=== PATIENT | female | born 1935 | race Caucasian/White ===

== ENCOUNTER 2018-12-16 13:27 | Observation (INO) | payer OTHER ==
[2018-12-16 14:04] LABS: Absolute Lymphocytes (CBC) 1.9 K/uL (0.7-4.9); Absolute Monocytes 0.8 K/uL (0.1-1.3); Absolute Neutrophil 3.3 K/uL (1.8-8.0); Basophils % 0.8 % (0-1.3); Eosinophils % 6.4 % (0-4.4); Hematocrit 38.8 % (36.0-45.0); Lymphocytes % 29.4 % (15.3-44.8); MPV 8.1 fL (7.6-11.3); Monocytes % 11.9 % (3.3-12.3); RBC Red Blood Cell Count 4.21 M/uL (3.86-4.86)
[2018-12-16] MEDS ORDERED: NA CHLORIDE 0.9% 500 ML ONE (14:04)
[2018-12-16 14:30] LABS: BUN Blood Urea Nitrogen 34 mg/dL (7-18); Bicarbonate 27 mmol/L (21-32); Glucose Level 103 mg/dL (74-106); Magnesium 2.5 mg/dL (1.8-2.4); Potassium 4.7 mmol/L (3.5-5.1); Sodium Level 142 mmol/L (136-145); Troponin (Emerg Dept Use Only) < 0.02 ng/mL (0.0-0.045)
--- NOTE | 2018-12-16 14:41 | RAD REPORT ---
EXAM DESCRIPTION: CT - Head Brain Wo Cont - 12/16/2018 2:02 pm CLINICAL HISTORY: Dizziness COMPARISON: None. TECHNIQUE: Computed axial tomography of the head was obtained. IV contrast was not requested. All CT scans are performed using dose optimization technique as appropriate and may include automated exposure control or mA/KV adjustment according to patient size. FINDINGS: An intracranial bleed is not seen . Prominence of ventricles probably related to white matter atrophy. Normal pressure hydrocephalus can have this appearance but is probably less likely and should be correlated clinically No extra-axial fluid collection is noted. Mild low-density areas within periventricular, deep and sub cortical white matter likely ischemic changes secondary small vessel disease. Cerebral atrophy is present Fluid within the sinuses/ mastoids is not seen. IMPRESSION: Prominence of ventricles probably related to white matter atrophy. Normal pressure hydro cephalus can have this appearance but is probably less likely and should be correlated clinically
--- NOTE | 2018-12-16 15:14 | EKG ---
Test Date: 2018-12-16 Test Time: 13:32:16 [employer] Tester: LIZ MEASUREMENT RESULTS: Intervals: Rate: 59 WY: 164 QRSD: 86 QT: 418 QTc: 413 [place]: P: 38 WY: 164 QRS: -28 T: 37 INTERPRETIVE STATEMENTS: Sinus bradycardia Minimal voltage criteria for LVH, may be normal variant Borderline ECG No previous ECG available for comparison Electronically Signed On 12-16-18 15:14:13 CDT by Farooq Slater
--- NOTE | 2018-12-16 16:13 | ER ---
Nurse's Notes [facility] Name: Niika Turner Age: 83 yrs Sex: Female : 1935 Arrival Date: 12/16/2018 Time: 13:35 Bed 24 Private MD: Diagnosis: Dehydration;Near Syncope Presentation: 12/16 13:36 Presenting complaint: EMS states: pt had seizure-like symptoms: nystagmus which lasted ca1 3-5 minutes, dizziness, blurred vision and headache. Happens 30 minutes ago. No postictal state after. No HX of seizures. BP of 172/66, HR 60 with sinus rhythm, O2 sat 97% RA and RR 12 unlabored. long term says pt can be confused and not confused at time which is normal. long term also states that pt reports burning upon urination for 1 month now. And weakness for 3 weeks which has been progressive in the past few days. Transition of care: patient was received from another setting of care (long-term care facility), [facility]. Onset of symptoms was December 16, 2018. Risk Assessment: Do you want to hurt yourself or someone else? Patient reports no desire to harm self or others. Initial Sepsis Screen: Does the patient meet any 2 criteria? No. Patient's initial sepsis screen is negative. Does the patient have a suspected source of infection? Yes: Dysuria/Frequency/Urgency/UTI. Care prior to arrival: IV initiated. 20 GA, in the right antecubital area, Glucose check: 102. 13:36 Method Of Arrival: EMS: [facility] ca1 13:36 Acuity: SHELBY 3 ca1 Triage Assessment: 13:36 General: Appears in no apparent distress. comfortable, Behavior is calm, cooperative, ca1 appropriate for age. Pain: Denies pain. Historical: - Allergies: 14:04 Botox; ca1 14:04 meloxicam; ca1 14:04 Influenza Virus Vaccines; ca1 14:04 PENICILLINS; ca1 14:04 Pneumococcal Vaccines; ca1 - Home Meds: 16:31 tramadol 50 mg Oral tab 1 tab three times a day [Active]; acetaminophen 325 mg Oral tab ca1 1 tab every 6 hours [Active]; alendronate sodium-cholecalciferol(vitamin D3) oral oral 1 tab once wkly [Active]; MagOx 400 mg oral tab daily [Active]; alprazolam 1 mg Oral tab twice a day [Active]; omeprazole 20 mg Oral cpDR [Active]; metoprolol tartrate 12.5mg Oral tab 1 tab once daily [Active]; melatonin 3 mg Oral tab [Active]; gabapentin 300 mg oral cap 2 caps nightly [Active]; - PMHx: 16:31 Age related osteoporosis; Anxiety; Hypertension; Generalized Muscle Weakness; Spinal ca1 Stenosis (Lumbar Region); Spondylolysis (Lumbar Region); Cognitive Communication Deficit; Erythromelalgia; GERD without Esophagitis; - Immunization history:: Flu vaccine is not up to date. - Social history:: Smoking status: Patient/guardian denies using tobacco. - Ebola Screening: : No symptoms or risks identified at this time. - Family history:: not pertinent. - Hospitalizations: : No recent hospitalization is reported. Screenin:37 Abuse screen: Denies threats or abuse. Denies injuries from another. Nutritional ca1 screening: No deficits noted. Tuberculosis screening: No symptoms or risk factors identified. Fall Risk IV access (20 points). Ambulatory Aid- Crutches/Cane/Walker (15 pts). Assessment: 13:37 General: Appears in no apparent distress. comfortable, Behavior is calm, cooperative, ca1 appropriate for age. Pain: Denies pain. Neuro: Level of Consciousness is awake, alert, obeys commands, Oriented to person, place, situation, Flumer are equal bilaterally Moves all extremities. Speech is normal, Facial symmetry appears normal, Pupils are PERRLA. Cardiovascular: Heart tones S1 S2 present Capillary refill < 3 seconds Patient's skin is warm and dry. Rhythm is sinus rhythm. Respiratory: Airway is patent Respiratory effort is even, unlabored, Respiratory pattern is regular, symmetrical, Breath sounds are clear bilaterally. GI: Abdomen is flat, non-distended, Bowel sounds present X 4 quads. Abd is soft and non tender X 4 quads. : Reports burning with urination. EENT: No deficits noted. No signs and/or symptoms were reported regarding the EENT system. Derm: Skin is intact, is healthy with good turgor, Skin is pink, warm \T\ dry. Musculoskeletal: Circulation, motion, and sensation intact. Capillary refill < 3 seconds. 15:43 Reassessment: Patient appears in no apparent distress at this time. Patient and/or ca1 family updated on plan of care and expected duration. Pain level reassessed. Patient is alert, oriented x 3, equal unlabored respirations, skin warm/dry/pink. 16:19 Reassessment: Daughter at bedside. Dr. Guevara at bedside. ca1 16:29 Reassessment: Patient appears in no apparent distress at this time. Patient and/or ca1 family updated on plan of care and expected duration. Pain level reassessed. Patient is alert, oriented x 3, equal unlabored respirations, skin warm/dry/pink. 17:32 Reassessment: Patient appears in no apparent distress at this time. Patient and/or ca1 family updated on plan of care and expected duration. Pain level reassessed. Patient is alert, oriented x 3, equal unlabored respirations, skin warm/dry/pink. Pt to radiology for MRI. 18:03 Reassessment: Patient appears in no apparent distress at this time. Patient is alert, ca1 oriented x 3, equal unlabored respirations, skin warm/dry/pink. Pt back from radiology dept. 19:05 Reassessment: Patient appears in no apparent distress at this time. Patient is alert, ca1 oriented x 3, equal unlabored respirations, skin warm/dry/pink. 19:48 Reassessment: Patient appears in no apparent distress at this time. Patient and/or ca1 family updated on plan of care and expected duration. Pain level reassessed. Patient is alert, oriented x 3, equal unlabored respirations, skin warm/dry/pink. Vital Signs: 13:36 BP 158 / 66; Pulse 61; Resp 17; Temp 98.1; Pulse Ox 98% on R/A; Weight 57.61 kg; Height ca1 5 ft. (152.40 cm); Pain 0/10; 13:37 BP 158 / 66; Pulse 59; Resp 18; Temp 98.1(O); Pulse Ox 100% ; lt1 15:15 BP 171 / 74; Pulse 67; Resp 23; Pulse Ox 97% on R/A; ca1 15:43 BP 165 / 73; Pulse 60; Resp 19 S; Temp 98.3; Pulse Ox 98% on R/A; ca1 16:30 BP 163 / 64; Pulse 58; Resp 18 S; Pulse Ox 95% on R/A; ca1 17:01 BP 155 / 89; Pulse 61; Resp 19 S; Temp 98.3(O); Pulse Ox 96% on R/A; ca1 18:09 BP 163 / 76; Pulse 58; Resp 18 S; Pulse Ox 98% on R/A; ca1 19:05 BP 158 / 75; Pulse 64; Resp 19 S; Temp 98.2(O); Pulse Ox 95% on R/A; ca1 19:48 BP 141 / 76; Pulse 69; Resp 18 S; Temp 98.3(O); Pulse Ox 99% on R/A; ca1 13:36 Body Mass Index 24.80 (57.61 kg, 152.40 cm) ca1 ED Course: 13:32 EKG done, by shop service technician. reviewed by Mario Alberto Spain MD. at1 13:35 Patient arrived in ED. ca1 13:36 Mario Alberto Spain MD is Attending Physician. rn 13:36 Arm band placed on right wrist. EKG completed in triage. Results shown to MD. ca1 13:37 Patient has correct armband on for positive identification. Placed in gown. Bed in low ca1 position. Call light in reach. Side rails up X2. court recording monitor on. Pulse ox on. NIBP on. Warm blanket given. 13:42 Triage completed. ca1 13:42 Maintain EMS IV. Dressing intact. Good blood return noted. Site clean \T\ dry. Gauge \T\ ca 1 site: G20 [facility]. 13:43 Eveline Ruby, KIKO is Primary Nurse. ca1 14:01 CT completed. Patient tolerated procedure well. Patient moved to CT via stretcher. jj2 Patient moved back from CT. 14:03 CT Head Brain wo Cont In Process Unspecified. EDMS 15:35 Straight cath inserted, using sterile technique, 16 Fr. Specimen obtained. Returned sv clear yellow urine. Patient tolerated well. 16:12 Luis Guevara DO is Hospitalizing Provider. rn 16:20 No provider procedures requiring assistance completed. Patient admitted, IV remains in ca1 place. Administered Medications: 13:45 Drug: NS 0.9% 500 ml Route: IV; Rate: bolus; Site: right antecubital; ca1 14:20 Follow up: IV Status: Completed infusion ca1 Intake: 16:14 IV: 500ml; Total: 500ml. ca1 Output: 16:14 Urine: 720ml (Straight Cath); Total: 720ml. ca1 Outcome: 16:13 Decision to Hospitalize by Provider. rn 19:46 Admitted to Med/surg accompanied by tech, via stretcher, room 206, with chart, Report ca1 called to Nancy Marroquin RN 19:47 Condition: stable ca1 19:47 Instructed on the need for admit. 19:53 Patient left the ED. ca1 Signatures: Dispatcher [employer] EDViry Sinclair RN RN sv Jaramillo, Justin jj2 Nieto, Roman, MD MD rn Gonzales, Amanda, blurb writer EKG Tat1 Eveline Ruby RN RN ca1 Nedra Rosas lt1
--- NOTE | 2018-12-16 16:13 | EDPHYS ---
Physician Documentation [facility] Name: Nikia Turner Age: 83 yrs Sex: Female : 1935 Arrival Date: 12/16/2018 Time: 13:35 Bed 24 Private MD: ED Physician Mario Alberto Spain HPI: 12/16 14:55 This 83 yrs old Female presents to ER via EMS with complaints of possible rn seizure. 14:55 Per EMS reports, told by staff that was eating, noticed eyes shaking, blurred vision rn and headache, lasted for about 3 minutes, patient reports was awake through entire episode, no syncope, EMS did not witness seizure like activity or post-ictal period. Pt denies previous hx of seizures. Reports feels generalized weakness and fatigue. Reports not drinking a lot of water lately. . Onset: The symptoms/episode began/occurred just prior to arrival. Severity of symptoms: At their worst the symptoms were mild in the emergency department the symptoms have resolved. The patient has not experienced similar symptoms in the past. Historical: - Allergies: 14:04 Botox; ca1 14:04 meloxicam; ca1 14:04 Influenza Virus Vaccines; ca1 14:04 PENICILLINS; ca1 14:04 Pneumococcal Vaccines; ca1 - Home Meds: 16:31 tramadol 50 mg Oral tab 1 tab three times a day [Active]; acetaminophen 325 mg Oral tab ca1 1 tab every 6 hours [Active]; alendronate sodium-cholecalciferol(vitamin D3) oral oral 1 tab once wkly [Active]; MagOx 400 mg oral tab daily [Active]; alprazolam 1 mg Oral tab twice a day [Active]; omeprazole 20 mg Oral cpDR [Active]; metoprolol tartrate 12.5mg Oral tab 1 tab once daily [Active]; melatonin 3 mg Oral tab [Active]; gabapentin 300 mg oral cap 2 caps nightly [Active]; - PMHx: 16:31 Age related osteoporosis; Anxiety; Hypertension; Generalized Muscle Weakness; Spinal ca1 Stenosis (Lumbar Region); Spondylolysis (Lumbar Region); Cognitive Communication Deficit; Erythromelalgia; GERD without Esophagitis; - Immunization history:: Flu vaccine is not up to date. - Social history:: Smoking status: Patient/guardian denies using tobacco. - Ebola Screening: : No symptoms or risks identified at this time. - Family history:: not pertinent. - Hospitalizations: : No recent hospitalization is reported. ROS: 14:55 Constitutional: Negative for fever, chills, and weight loss, Eyes: Negative for injury, rn pain, redness, and discharge, Neck: Negative for injury, pain, and swelling, Cardiovascular: Negative for chest pain, palpitations, and edema, Respiratory: Negative for shortness of breath, cough, wheezing, and pleuritic chest pain, Abdomen/GI: Negative for abdominal pain, nausea, vomiting, diarrhea, and constipation, MS/Extremity: Negative for injury and deformity, Skin: Negative for injury, rash, and discoloration, Neuro: Negative for headache, numbness, tingling, and seizure. Exam: 14:55 Constitutional: This is a well developed, well nourished patient who is awake, alert, rn and in no acute distress. Head/Face: Normocephalic, atraumatic. Eyes: Pupils equal round and reactive to light, extra-ocular motions intact. Lids and lashes normal. Conjunctiva and sclera are non-icteric and not injected. Cornea within normal limits. Periorbital areas with no swelling, redness, or edema. ENT: dry MM Cardiovascular: Regular, bradycardic, no murmur Respiratory: Lungs have equal breath sounds bilaterally, clear to auscultation. No increased work of breathing, no retractions or nasal flaring. Abdomen/GI: soft, non-tender Skin: Warm, dry MS/ Extremity: Pulses equal, no cyanosis. Neurovascular intact. Full, normal range of motion. Equal circumference. Neuro: Awake and alert, GCS 15, oriented to person, place, time, and situation. Cranial nerves II-XII grossly intact. Motor strength 5/5 in all extremities. Sensory grossly intact. Vital Signs: 13:36 BP 158 / 66; Pulse 61; Resp 17; Temp 98.1; Pulse Ox 98% on R/A; Weight 57.61 kg; Height ca1 5 ft. (152.40 cm); Pain 0/10; 13:37 BP 158 / 66; Pulse 59; Resp 18; Temp 98.1(O); Pulse Ox 100% ; lt1 15:15 BP 171 / 74; Pulse 67; Resp 23; Pulse Ox 97% on R/A; ca1 15:43 BP 165 / 73; Pulse 60; Resp 19 S; Temp 98.3; Pulse Ox 98% on R/A; ca1 16:30 BP 163 / 64; Pulse 58; Resp 18 S; Pulse Ox 95% on R/A; ca1 17:01 BP 155 / 89; Pulse 61; Resp 19 S; Temp 98.3(O); Pulse Ox 96% on R/A; ca1 18:09 BP 163 / 76; Pulse 58; Resp 18 S; Pulse Ox 98% on R/A; ca1 19:05 BP 158 / 75; Pulse 64; Resp 19 S; Temp 98.2(O); Pulse Ox 95% on R/A; ca1 19:48 BP 141 / 76; Pulse 69; Resp 18 S; Temp 98.3(O); Pulse Ox 99% on R/A; ca1 13:36 Body Mass Index 24.80 (57.61 kg, 152.40 cm) ca1 MDM: 13:36 Patient medically screened. rn 16:08 Differential Diagnosis Pt back to baseline, unclear what happened, + dehydration, rn negative urine, possible syncope vs near syncope vs TIA. . 16:11 Data reviewed: vital signs, nurses notes, lab test result(s), EKG, radiologic studies, rn and as a result, I will admit patient. Counseling: I had a detailed discussion with the patient and/or guardian regarding: the historical points, exam findings, and any diagnostic results supporting the discharge/admit diagnosis, lab results, radiology results, the need for further work-up and treatment in the hospital. Response to treatment: the patient's condition has returned to base line, and as a result, I will admit patient. Admission orders: after a detailed discussion of the patient's condition and case, the admit orders are written by me. 12/16 13:42 Order name: Basic Metabolic Panel; Complete Time: 14:43 rn 12/16 13:42 Order name: CBC with Diff; Complete Time: 14:43 rn 12/16 13:42 Order name: Magnesium; Complete Time: 14:43 rn 12/16 13:42 Order name: Troponin (emerg Dept Use Only); Complete Time: 14:43 rn 12/16 13:42 Order name: Urine Microscopic Only; Complete Time: 18:21 rn 12/16 13:42 Order name: Urine Culture rn 12/16 13:42 Order name: CT Head Brain wo Cont; Complete Time: 14:43 rn 12/16 13:42 Order name: EKG; Complete Time: 13:43 rn 12/16 13:42 Order name: Cardiac monitoring; Complete Time: 13:44 rn 12/16 13:42 Order name: EKG - Nurse/Tech; Complete Time: 13:44 rn 12/16 15:45 Order name: Urine Dipstick--Ancillary (enter results) eb 12/16 15:46 Order name: Urine Dipstick-Ancillary; Complete Time: 18:21 EDMS 12/16 16:12 Order name: Brain Wo Cont; Complete Time: 18:21 EDMS 12/16 13:42 Order name: IV Saline Lock; Complete Time: 13:44 rn 12/16 13:42 Order name: Labs collected and sent; Complete Time: 13:59 rn 12/16 13:42 Order name: NPO; Complete Time: 13:44 rn 12/16 13:42 Order name: O2 Per Protocol; Complete Time: 13:44 rn 12/16 13:42 Order name: O2 Sat Monitoring; Complete Time: 13:44 rn 12/16 13:42 Order name: Urine Dipstick-Ancillary (obtain specimen); Complete Time: 15:43 rn Administered Medications: 13:45 Drug: NS 0.9% 500 ml Route: IV; Rate: bolus; Site: right antecubital; ca1 14:20 Follow up: IV Status: Completed infusion ca1 Disposition: 12/16/18 16:13 Hospitalization ordered by Luis Guevara for Observation. Preliminary diagnosis are Dehydration, Near Syncope. - Bed requested for Telemetry/MedSurg (observation). - Status is Observation. ca1 - Condition is Stable. - Problem is new. - Symptoms have improved. UTI on Admission? No Signatures: Dispatcher [employer] EDKS Mario Alberto Spain MD MD rn Fitzgerald, Diane, RN RN df Acob, Cheryl, RN RN ca1 Corrections: (The following items were deleted from the chart) 18:23 16:13 Hospitalization Ordered by Luis Guevara DO for Observation. Preliminary df diagnosis is Dehydration; Near Syncope. Bed requested for Telemetry/MedSurg (observation). Status is Observation. Condition is Stable. Problem is new. Symptoms have improved. UTI on Admission? No. rn 19:53 18:23 12/16/2018 16:13 Hospitalization Ordered by Luis Guevara DO for Observation. ca1 Preliminary diagnosis is Dehydration; Near Syncope. Bed requested for Telemetry/MedSurg (observation). Status is Observation. Condition is Stable. Problem is new. Symptoms have improved. UTI on Admission? No. df
[2018-12-16 16:20] LABS: Urine Bacteria NONE SEEN /HPF (<20); Urine Culture Reflex Order NOT NEEDED; Urine RBC NONE SEEN /HPF (NONE SEEN)
[2018-12-16 16:51] LABS: Urine Blood TRACE (NEG); Urine Glucose NEGATIVE (NEG); Urine Protein NEGATIVE (NEG); Urine pH 6.5 (5.0-7.0)
--- NOTE | 2018-12-16 17:01 | P.HP ---
Certification for Inpatient Patient admitted to: Observation With expected LOS: <2 Midnights Patient will require the following post-hospital care: Other (To prison) Practitioner: I am a practitioner with admitting privileges, knowledge of patient current condition, hospital course, and medical plan of care. Services: Services provided to patient in accordance with Admission requirements found in Title 42 Section 412.3 of the Code of Federal Regulations Patient History Date of Service: 12/16/18 Primary Care Provider: detention resident Reason for admission: Dizziness, blurry vision History of Present Illness: 83-year-old female presented to the emergency room from the prison for blurry vision, nystagmus and dizziness. Most of the information came from the daughter and ER physician. Patient with with history of dementia, spinal stenosis, hypertension, chronic renal disease. Patient had blurry vision, nystagmus and dizziness earlier today during lunchtime. This was witnessed. It lasted for 3 min. There was no syncope noted. She denied any chest pain, shortness of breath, nausea or vomiting. She was brought in to the ER for further evaluation. In the ER patient evaluated. Vital signs stable. CT head showed no acute changes. ER Neuro examination unremarkable. Urinalysis negative. Initial troponin unremarkable. CBC unremarkable. Sodium 142, potassium 4.7, BUN of 34 , creatinine 1.43 with a GFR 35. Patient was admitted for observation. When I evaluated the patient she is without any distress. Home medications list reviewed: Yes - Past Medical/Surgical History Diabetic: No -: Hypertension -: Chronic renal disease, stage 3 -: Dementia -: Spinal stenosis with prior surgery -: GERD -: Anxiety -: Spinal surgery -: Hysterectomy Psychosocial/ Personal History: Patient has been at [facility] for over 2 years. - Social History Smoking Status: Never smoker Alcohol use: No CD- Drugs: No Caffeine use: No Place of Residence: Residential Review of Systems General: As per HPI Eyes: As per HPI ENT: Unremarkable Respiratory: Unremarkable Cardiovascular: Light Headedness, As per HPI Gastrointestinal: Unremarkable Genitourinary: Unremarkable Musculoskeletal: Unremarkable Integumentary: Unremarkable Neurological: As per HPI Lymphatics: Unremarkable Physical Examination - Physical Exam General: Alert, In no apparent distress, Cooperative, Demented HEENT: Atraumatic, Normocephalic, PERRLA, Mucous membr. moist/pink, EOMI Neck: Supple, No Thyromegaly Respiratory: Crackles/rales (Slight crackles to the bases) Cardiovascular: Normal pulses, Regular rate/rhythm Gastrointestinal: Normal bowel sounds, Soft and benign, Non-distended, No tenderness, No masses, No rebound, No guarding Musculoskeletal: No contractures, No erythema, No tenderness, No warmth Integumentary: No tenderness/swelling, No erythema, No warmth, No cyanosis Neurological: Normal speech, Normal strength at 5/5 x4 extr, Normal tone, Normal affect - Studies Laboratory Data (last 24 hrs) 12/16/18 13:49: WBC 6.4, Hgb 12.7, Hct 38.8, Plt Count 430 H 12/16/18 13:49: Sodium 142, Potassium 4.7, BUN 34 H, Creatinine 1.43 H, Glucose 103, Magnesium 2.5 H Assessment and Plan - Plan Impression: Dizziness, blurry vision, nystagmus likely TIA Hypertension Chronic renal disease stage III Dementia Spinal stenosis patient non ambulatory Anxiety GERD Plan: Dizziness, blurry vision, nystagmus likely TIA: Current MRI shows no acute stroke. Global atrophy likely indicates vascular dementia. Patient likely with TIA. Will obtain carotid Doppler and echocardiogram to further evaluate. Patient not on aspirin prior to admission. Will start aspirin and statin medication. Will provide DVT prophylaxis-Lovenox. We need to evaluate for congestive heart failure. Patient appears to be at her baseline level. Advanced directives address with daughter. Patient is DNR. Plan of care discussed with daughter. Will observe Overnite. If stable will discharge back to her prison. Patient may require aspirin and statin medication. Hypertension: Will obtain and verify home medication. Patient may require adjustment in medication. Chronic renal disease stage III: Will check renal ultrasound. Patient likely with underlying chronic renal disease. Dementia: Patient likely with vascular dementia. MRI shows global atrophy. Spinal stenosis patient non ambulatory: Will provide medication for pain. Anxiety: Will provide medication for anxiety. GERD: Will provide medication. Discharge Plan: Residential Plan to discharge in: 24 Hours - Advance Directives Does patient have a Living Will: No Does patient have a Durable POA for Healthcare: No - Code Status/Comfort Care Code Status Assessed: Yes (Patient is DNR.) Time Spent Managing Pts Care (In Minutes): 55
--- NOTE | 2018-12-16 18:10 | RAD REPORT ---
EXAM DESCRIPTION: MRI - Brain Wo Cont - 12/16/2018 5:57 pm CLINICAL HISTORY: possible tia Headache, drowsiness, TIA symptomology COMPARISON: Head Brain Wo Cont dated 12/16/2018 TECHNIQUE: Multi-sequence, multiplanar MR imaging of the brain was performed without contrast. FINDINGS: No intracranial hemorrhage, hydrocephalus or extra-axial fluid collections.Prominent brain atrophy is present with periventricular deep white matter mild chronic microvascular ischemic change s. No edema or shift of midline structures. No findings to suspect brain mass. DWI is negative for ac [place] CVA. Midline structures are normally formed. Mucoperiosteal thickening affects the sphenoid sinus. IMPRESSION: Negative for acute CVA or other acute intracranial abnormality. Advanced global brain atrophy.
[2018-12-16] MEDS ORDERED: ALPRAZOLAM 1 MG TABLET PO PRN (20:41)
[2018-12-16] MEDS ORDERED: ONDANSETRON 4 MG/2 ML VIAL IV PRN (20:41)
[2018-12-16] MEDS ORDERED: ACETAMINOPHEN 500 MG TAB PO PRN (20:41)
[2018-12-16] MEDS ORDERED: ATORVASTATIN 20 MG TAB PO SCH (21:00)
[2018-12-16] MEDS ORDERED: GABAPENTIN 300 MG CAP PO SCH (21:00)
[2018-12-16 21:11] LABS: T4,Total 9.7 ug/dL (4.8-13.9); Thyroid Stimulating Hormone 1.68 uIU/mL (0.360-3.740)
[2018-12-16] MEDS: LACTOBACILLUS/ACIDOPHILUS TAB PO SCH (22:26)
[2018-12-16] MEDS: METOPROLOL TAR 25 MG TAB PO SCH (22:27)
[2018-12-16] MEDS: MAGNESIUM OXIDE 400 MG TAB PO SCH (22:27)
[2018-12-16] MEDS: TRAMADOL HCL 50 MG TAB PO PRN (22:28)
[2018-12-17] MEDS: METOPROLOL TAR 25 MG TAB PO SCH (05:27)
[2018-12-17 06:50] LABS: Magnesium 2.3 mg/dL (1.8-2.4); Potassium 4.1 mmol/L (3.5-5.1)
[2018-12-17] MEDS: TRAMADOL HCL 50 MG TAB PO PRN ×2 (08:46→14:57)
[2018-12-17] MEDS: LACTOBACILLUS/ACIDOPHILUS TAB PO SCH (08:50)
[2018-12-17] MEDS: MAGNESIUM OXIDE 400 MG TAB PO SCH (08:50)
--- NOTE | 2018-12-17 08:51 | P.DS ---
Admission Date: 12/16/18 Discharge Date: 12/17/18 Primary Care Provider: prison resident Disposition: TRANSFER TO LONGTERM Discharge Condition: GOOD Reason for Admission: Dizziness, blurry vision Consultations: none Procedures: CT head: FINDINGS: An intracranial bleed is not seen . Prominence of ventricles probably related to white matter atrophy. Normal pressure hydrocephalus can have this appearance but is probably less likely and should be correlated clinically No extra-axial fluid collection is noted. Mild low-density areas within periventricular, deep and subcortical white matter likely ischemic changes secondary small vessel disease. Cerebral atrophy is present Fluid within the sinuses/ mastoids is not seen. IMPRESSION: Prominence of ventricles probably related to white matter atrophy. Normal pressure hydrocephalus can have this appearance but is probably less likely and should be correlated clinically MRI Brain: COMPARISON: Head Brain Wo Cont dated 12/16/2018 TECHNIQUE: Multi-sequence, multiplanar MR imaging of the brain was performed without contrast. FINDINGS: No intracranial hemorrhage, hydrocephalus or extra-axial fluid collections.Prominent brain atrophy is present with periventricular deep white matter mild chronic microvascular ischemic changes. No edema or shift of midline structures. No findings to suspect brain mass. DWI is negative for acute CVA. Midline structures are normally formed. Mucoperiosteal thickening affects the sphenoid sinus. IMPRESSION: Negative for acute CVA or other acute intracranial abnormality. Advanced global brain atrophy. Carotid doppler: Renal US: Medical Problem List: Dizziness, blurry vision, nystagmus likely TIA Hypertension Hyperlipidemia Chronic renal disease stage III Dementia Spinal stenosis patient non ambulatory Anxiety GERD Brief History of Present Illness: 83-year-old female presented [facility] for blurry vision, nystagmus and dizziness. Most of the information came from the daughter and ER physician. Patient with with history of dementia, spinal stenosis, hypertension, chronic renal disease. Patient had blurry vision, nystagmus and dizziness earlier today during lunchtime. This was witnessed. It lasted for 3 min. There was no syncope noted. She denied any chest pain, shortness of breath, nausea or vomiting. She was brought in to the ER for further evaluation. In the ER patient evaluated. Vital signs stable. CT head showed no acute changes. ER Neuro examination unremarkable. Urinalysis negative. Initial troponin unremarkable. CBC unremarkable. Sodium 142, potassium 4.7, BUN of 34 , creatinine 1.43 with a GFR 35. Patient was admitted for observation. When I evaluated the patient she is without any distress. Hospital Course: Patient presented with dizziness, blurry vision, and nystagmus for several min. This resolved quickly. Patient was sent to the ER for further evaluation. Initial CT scan of the head unremarkable. Follow up MRI shows no acute stroke. Global atrophy noted. Patient with history of dementia, hypertension, chronic renal disease. Patient was observed overnight. Her condition has remained stable. Patient likely had a TIA. At discharge she will continue with aspirin 81 mg daily. Patient with elevated LDL. Will start Lipitor 40 mg daily. Patient may continue with her medication at the assisted living facility. Patient with hypertension. This has remained stable. Medication was adjusted to twice daily. At discharge she will continue with metoprolol 12.5 mg 1 pill twice daily. Recommend to maintain blood pressures less than 150/80. Patient with underlying hyperlipidemia. LDL elevated. Patient has been started on Lipitor 40 mg daily. Further adjustment can be done by her physician. Patient with chronic renal disease, stage III. This has remained stable. Renal ultrasound obtained. This can be followed up by her PCP. Recommend no further use of nonsteroidal anti-inflammatories will need to be renally dosed. Patient may benefit with nephrology evaluation as an outpatient. Patient with dementia likely vascular. MRI shows global atrophy. Patient stable at this time. Advanced directives address with the daughter who has medical power of leaf tinner. Patient is DNR. Hospice can be considered in the future. Patient with anxiety. Patient may continue with her medication. Patient with GERD. Patient may continue with her medication. Patient with history of spinal stenosis. Patient is non ambulatory. Patient may continue with her pain medication as directed. Vital Signs/Physical Exam: Temp Pulse Resp BP Pulse Ox 97.3 F 63 16 136/69 93 12/17/18 04:00 12/17/18 05:27 12/17/18 04:00 12/17/18 05:27 12/17/18 04:00 General: Alert, In no apparent distress, Demented HEENT: Atraumatic Neck: Supple Respiratory: Clear to auscultation bilaterally, Normal air movement Cardiovascular: Normal pulses, Regular rate/rhythm Gastrointestinal: Normal bowel sounds, Soft and benign, Non-distended, No tenderness, No masses, No rebound, No guarding Musculoskeletal: No erythema, No tenderness, No warmth Integumentary: No tenderness/swelling, No erythema, No warmth, No cyanosis Neurological: Normal speech, Normal strength at 5/5 x4 extr, Normal tone, Dementia Laboratory Data at Discharge: WBC 6.4 K/uL (4.3-10.9) 12/16/18 13:49 Hgb 12.7 g/dL (12.0-15.0) 12/16/18 13:49 Hct 38.8 % (36.0-45.0) 12/16/18 13:49 Plt Count 430 K/uL (152-406) H 12/16/18 13:49 Sodium 143 mmol/L (136-145) 12/17/18 06:07 Potassium 4.1 mmol/L (3.5-5.1) 12/17/18 06:07 BUN 28 mg/dL (7-18) H 12/17/18 06:07 Creatinine 1.25 mg/dL (0.55-1.3) 12/17/18 06:07 Glucose 80 mg/dL (74-106) 12/17/18 06:07 Magnesium 2.3 mg/dL (1.8-2.4) 12/17/18 06:07 Triglycerides 119 mg/dL (<150) 12/17/18 06:07 Cholesterol 182 mg/dL (<200) 12/17/18 06:07 HDL Cholesterol 40 mg/dL (40-60) 12/17/18 06:07 Cholesterol/HDL Ratio 4.55 12/17/18 06:07 Home Medications: ALPRAZolam [Xanax*] 1 mg PO BID 12/16/18 Acetaminophen [Tylenol] 325 mg PO Q6HP PRN 12/16/18 Acetaminophen [Tylenol] 650 mg PO DAILY 12/16/18 Cholecalciferol (Vitamin D3) [Vitamin D3] 1,000 unit PO DAILY 12/16/18 Diphenhydramine [Benadryl*] 25 mg PO BIDP PRN 12/16/18 Docusate Sodium 100 mg PO BID 12/16/18 Gabapentin [Neurontin] 600 mg PO BEDTIME 12/16/18 Lactobacillus Acidophilus [Acidophilus Lactobacilli] 1 each PO BID 12/16/18 Loperamide HCl [Loperamide] 2 mg PO Q6HP PRN 12/16/18 Loratadine [Claritin*] 10 mg PO DAILY 12/16/18 Magnesium Oxide [Mag 0X*] 400 mg PO DAILY 12/16/18 Melatonin [Melatin] 3 mg PO BEDTIME 12/16/18 Multivitamin [Multivitamins] 1 each PO DAILY 12/16/18 [place]-3 Fatty Acids [[place]-3] 1,000 mg PO DAILY 12/16/18 Omeprazole 20 mg PO DAILY 12/16/18 Ondansetron [Ondansetron Odt] 4 mg PO Q8HP PRN 12/16/18 Propylene Glycol/Peg 400/Pf [Systane Ultra 0.4-0.3% Eye Drp] 2 each OP Q1HWA 11/01 Sennosides [Senna Lax] 8.6 mg PO BID 12/16/18 Tramadol HCl [Ultram] 50 mg PO TID 12/16/18 Alendronate Sodium 70 mg PO SEECOM #4 tablet 12/17/18 Aspirin [Aspirin EC 81 MG] 81 mg PO DAILY #90 tablet. 12/17/18 Atorvastatin Calcium [Lipitor*] 40 mg PO BEDTIME #30 tab 12/17/18 Metoprolol Tartrate [Lopressor*] 12.5 mg PO BID 6AM 6PM #60 tab 12/17/18 New Medications: Alendronate Sodium 70 mg PO SEECOM #4 tablet Aspirin [Aspirin EC 81 MG] 81 mg PO DAILY #90 tablet. Atorvastatin Calcium [Lipitor*] 40 mg PO BEDTIME #30 tab Metoprolol Tartrate [Lopressor*] 12.5 mg PO BID 6AM 6PM #60 tab Patient Discharge Instructions: 1. Patient will follow up with her PCP in 1 week to follow up this hospitalization. 2. Patient presented with dizziness, blurry vision, and nystagmus for several min. This resolved quickly. Patient was sent to the ER for further evaluation. Initial CT scan of the head unremarkable. Follow up MRI shows no acute stroke. Global atrophy noted. Patient with history of dementia, hypertension, chronic renal disease. Patient was observed overnight. Her condition has remained stable. Patient likely had a TIA. At discharge she will continue with aspirin 81 mg daily. Patient with elevated LDL. Will start Lipitor 40 mg daily. Patient may continue with her medication at the assisted living facility. 3. Patient with hypertension. This has remained stable. Medication was adjusted to twice daily. At discharge she will continue with metoprolol 12.5 mg 1 pill twice daily. Recommend to maintain blood pressures less than 150/80. 4. Patient with underlying hyperlipidemia. LDL elevated. Patient has been started on Lipitor 40 mg daily. Further adjustment can be done by her physician. 5. Patient with chronic renal disease, stage III. This has remained stable. Renal ultrasound obtained. This can be followed up by her PCP. Recommend no further use of nonsteroidal anti-inflammatories will need to be renally dosed. Patient may benefit with nephrology evaluation as an outpatient. 6. Patient with dementia likely vascular. MRI shows global atrophy. Patient stable at this time. Advanced directives address with the daughter who has medical power of leaf tinner. Patient is DNR. Hospice can be considered in the future. 7. Patient with anxiety. Patient may continue with her medication. 8. Patient with GERD. Patient may continue with her medication. 9. Patient with history of spinal stenosis. Patient is non ambulatory. Patient may continue with her pain medication as directed. Diet: AHA Activity: Fall precautions Time spent managing pt's care (in minutes): 55
[2018-12-17] MEDS ORDERED: ENOXAPARIN 30 MG/0.3 ML SQ SCH (09:00)
[2018-12-17] MEDS ORDERED: ASPIRIN EC 81 MG TAB PO SCH (09:00)
[2018-12-17] MEDS ORDERED: FAMOTIDINE 20 MG TAB PO SCH (09:00)
--- NOTE | 2018-12-17 09:13 | RAD REPORT ---
EXAM DESCRIPTION: US - Renal Ultrasound-Complete - 12/16/2018 9:38 pm CLINICAL HISTORY: Chronic renal disease COMPARISON: None. FINDINGS: The right kidney measures 10 cm with an increased echotexture. The left kidney measures 9 cm with an increased echotexture. Hydronephrosis is not seen. No gross abnormality of bladder is seen IMPRESSION: Increased renal echotexture consistent with parenchymal disease
--- NOTE | 2018-12-17 09:14 | RAD REPORT ---
EXAM DESCRIPTION: USCarotid Artery Bilateral12/16/2018 9:38 pm CLINICAL HISTORY: Blurred vision COMPARISON: None FINDINGS: The velocity of the right internal carotid artery equals 92 cm/sec. The right ICA/CCA rati o 1.4 The velocity of the left internal carotid artery equals 84 cm/sec. The left ICA/CCA ratio 1.4 Mild plaque is present within the carotid arteries. The carotid arteries are tortuous The vertebral arteries demonstrate antegrade flow IMPRESSION: Mild plaque within the carotid arteries without evidence of a hemodynamically significan t stenosis NASCET criteria used. Mild 0-49% stenosis Moderate 50-69% stenosis Severe 70-99% stenosis
--- NOTE | 2018-12-17 10:05 | RAD REPORT ---
EXAM DESCRIPTION: Nneka Single View12/16/2018 10:01 pm CLINICAL HISTORY: sob COMPARISON: none FINDINGS: The lungs appear clear of acute infiltrate. The heart is normal size IMPRESSION: No acute abnormalities displayed
== END 2018-12-17 15:17 ==
LOC: ER 13:27 → ERHOLD 16:45 → 2ND 19:44
PROVIDERS: ADMIT Family Medicine; ATTEND Family Medicine
DX: R42 Dizziness and giddiness (principal); H53.8 Other visual disturbances; H55.00 Unspecified nystagmus; E78.5 Hyperlipidemia, unspecified; I12.9 Hypertensive chronic kidney disease with stage 1 through stage 4 chronic kidney disease, or unspecified chronic kidney disease; N18.3 Chronic kidney disease, stage 3 (moderate); F03.90 Unspecified dementia, unspecified severity, without behavioral disturbance, psychotic disturbance, mood disturbance, and anxiety; M48.00 Spinal stenosis, site unspecified; F41.9 Anxiety disorder, unspecified; K21.9 Gastro-esophageal reflux disease without esophagitis; Z66 Do not resuscitate
CPT/HCPCS: 93005; 87088; 85025; 80048 ×2; 36415; 83735 ×2; 80061; 84436; 84443; 84484; 70450; 71045; 93880; 70551; 76770; 97163; 51702; 96360; 99285; J1650; G0378 ×2; 81003; 81015; 87086

== ENCOUNTER 2018-12-29 11:16 | Inpatient (IN) | payer OTHER ==
[2018-12-29] MEDS ORDERED: NA CHLORIDE 0.9% 1,000 ML ONE (11:59)
[2018-12-29 12:13] LABS: Absolute Lymphocytes (CBC) 1.1 K/uL (0.7-4.9); Absolute Monocytes 1.1 K/uL (0.1-1.3); Absolute Neutrophil 10.4 K/uL (1.8-8.0); Basophils % 0.3 % (0-1.3); Eosinophils % 0.7 % (0-4.4); Hematocrit 33.2 % (36.0-45.0); Lymphocytes % 8.8 % (15.3-44.8); MPV 8.1 fL (7.6-11.3); Monocytes % 8.5 % (3.3-12.3); RBC Red Blood Cell Count 3.63 M/uL (3.86-4.86)
[2018-12-29 12:15] LABS: Protime INR 1.09
--- NOTE | 2018-12-29 12:30 | RAD REPORT ---
EXAM DESCRIPTION: Nneka Single View12/29/2018 12:18 pm CLINICAL HISTORY: Congestion COMPARISON: December 22, 2018 FINDINGS: The lungs appear clear of acute infiltrate. The heart is borderline enlarged IMPRESSION: No acute abnormalities displayed
[2018-12-29 12:36] LABS: ALT/SGPT 207 U/L (12-78); AST/SGOT 191 U/L (15-37); Albumin 2.8 g/dL (3.4-5.0); Alkaline Phosphatase 458 U/L (45-117); BUN Blood Urea Nitrogen 38 mg/dL (7-18); Bicarbonate 24 mmol/L (21-32); Bilirubin Direct 0.1 mg/dL (0-0.2); Bilirubin Total 0.4 mg/dL (0.2-1.0); CKMB Creatine Kinase MB < 1.0 ng/mL (0.3-3.6); Glucose Level 111 mg/dL (74-106); Potassium 4.2 mmol/L (3.5-5.1); Protein, Total 7.3 g/dL (6.4-8.2); Sodium Level 144 mmol/L (136-145)
[2018-12-29 12:37] LABS: Lipase 97 U/L (73-393); Troponin (Emerg Dept Use Only) 0.02 ng/mL (0.0-0.045)
[2018-12-29 17:04] LABS: Urine Blood 1+ (NEG); Urine Glucose NEGATIVE (NEG); Urine Protein 2+ (NEG); Urine Specific Gravity 1.015 (1.005-1.030)
[2018-12-29 17:11] LABS: Urine Bacteria 20-50 /HPF (<20); Urine Culture Reflex Order REFLEXED; Urine RBC <5 /HPF (NONE SEEN)
--- NOTE | 2018-12-29 17:16 | ER ---
Nurse's Notes [facility] Name: Nikia Turner Age: 83 yrs Sex: Female : 1935 Arrival Date: 12/29/2018 Time: 11:18 Bed 2 Private MD: Diagnosis: Acute tubulo-interstitial nephritis Presentation: 12/29 11:18 Presenting complaint: EMS states: from [facility], was called for pt, found out to be hj confused today, per report, staff did straight cath and urine was sent for test, came back to have UTI; on triage pt states, "i dont need to be here, I feel great"; BP- 113/71; HR- 68; T- 97.5; O2 sat- 94%;. Transition of care: patient was not received from another setting of care. Onset of symptoms was December 29, 2018. Risk Assessment: Do you want to hurt yourself or someone else? Patient reports no desire to harm self or others. Initial Sepsis Screen: Does the patient meet any 2 criteria? No. Patient's initial sepsis screen is negative. Does the patient have a suspected source of infection? No. Patient's initial sepsis screen is negative. Care prior to arrival: None. 11:18 Method Of Arrival: EMS: [facility] 11:18 Acuity: SHELBY 3 hj Triage Assessment: 11:25 General: Appears in no apparent distress. uncomfortable, Behavior is cooperative, hj appropriate for age, agitated. Pain: Denies pain. Neuro: Level of Consciousness is awake, alert, obeys commands, Oriented to person, place, time, situation, Appropriate for age. Historical: - Allergies: 11:24 Botox; hj 11:24 INFLUENZA VIRUS VACCINES; hj 11:24 meloxicam; hj 11:24 PENICILLINS; hj 11:24 Pneumococcal Vaccines; hj - Home Meds: 18:30 aspirin 81 mg Oral chew 1 tab once daily [Active]; metoprolol tartrate 12.5MG Oral tab aj1 1 tab 2 times per day [Active]; Macrobid 100 mg Oral cap 1 cap every 12 hours [Active]; tramadol 50 mg Oral tab 1 tab every 8 hours as needed for pain [Active]; Lipitor 40 mg Oral tab 1 tab once daily [Active]; alendronate sodium-cholecalciferol(vitamin D3) Oral 1 tab once wkly [Active]; MagOx 400 mg Oral tab daily [Active]; senna 8.6 mg oral tab 2 tabs twice daily [Active]; alprazolam 1 mg Oral tab twice a day [Active]; [place]-3 oral oral daily [Active]; Multiple Vitamins oral tab daily [Active]; cholecalciferol (vitamin D3) oral oral daily [Active]; gabapentin 300 mg Oral cap 2 caps nightly [Active]; docusate sodium 100 mg Oral cap 1 cap once daily [Active]; melatonin 3 mg Oral tab nightly [Active]; - PMHx: 11:24 Age related osteoporosis; Anxiety; cognitive communication deficit; Erythromelalgia; hj Generalized Muscle Weakness; GERD without Esophagitis; Hypertension; Spinal Stenosis (Lumbar Region); Spondylolysis (Lumbar Region); - PSHx: 11:24 Unable to obtain; hj - Immunization history:: Adult Immunizations not immunized. - Social history:: Smoking status: Patient/guardian denies using tobacco, Patient/guardian denies using alcohol. - Ebola Screening: : Patient negative for fever greater than or equal to 101.5 degrees Fahrenheit, and additional compatible Ebola Virus Disease symptoms Patient denies exposure to infectious person Patient denies travel to an Ebola-affected area in the 21 days before illness onset. Screenin:25 Abuse screen: Denies threats or abuse. Denies injuries from another. Nutritional hj screening: No deficits noted. Tuberculosis screening: No symptoms or risk factors identified. Fall Risk None identified. Assessment: 12:15 General: Appears in no apparent distress. comfortable, Behavior is cooperative, aj1 agitated. Pain: Denies pain. Neuro: Level of Consciousness is awake, alert, obeys commands, Oriented to person, place, Speech is normal. Cardiovascular: Patient's skin is warm and dry. Respiratory: Airway is patent Respiratory effort is even, unlabored, Respiratory pattern is regular, symmetrical. GI: No signs and/or symptoms were reported involving the gastrointestinal system. : Parent/caregiver report the patient having penitentiary reports that they recently sent of a UA and patient was positive for UTI. EENT: No signs and/or symptoms were reported regarding the EENT system. Derm: No signs and/or symptoms reported regarding the dermatologic system. Skin is pink, warm \\T\\ dry. normal. Musculoskeletal: No signs and/or symptoms reported regarding the musculoskeletal system. Circulation, motion, and sensation intact. 13:15 Reassessment: Patient appears in no apparent distress at this time. No changes from aj1 previously documented assessment. Patient and/or family updated on plan of care and expected duration. Pain level reassessed. 14:21 Reassessment: Patient and/or family updated on plan of care and expected duration. Pain aj1 level reassessed. Patient is in room screaming "Sissy! Sissy" Upon entering patient's room patient states "Well its about time you got here!" When asked what we could do to help her patient states "Never mind". 15:20 Reassessment: Patient appears in no apparent distress at this time. No changes from aj1 previously documented assessment. Patient and/or family updated on plan of care and expected duration. Pain level reassessed. Patient is confused states "I've just gotten out of the hospital 10 days ago, so I've been really sick and can't get around well" Explained to patient that she was currently at this hospital. Patient states "I am?" Patient re-oriented to time and place. 16:13 Reassessment: Attempted to assist patient to bedside commode, at first upon telling aj1 patient we need a urine sample patient states "piss off". Explained to patient that if she could not give a urine sample we would need to do a straight cath to get one, patient states she will attempt to get up, however she does not move herself. When patient was offered assistance she agree and would sit up partially with assistance and then would throw all her weight back again. Attempted to assist patient out of bed 4 times, each will the same result. Patient was then assisted back to bed, explained to patient that I would be back and we would attempt to do straight cath. 17:20 Reassessment: Patient appears in no apparent distress at this time. No changes from aj1 previously documented assessment. Patient and/or family updated on plan of care and expected duration. Pain level reassessed. 18:17 Reassessment: Patient and/or family updated on plan of care and expected duration. Pain aj1 level reassessed. General: Appears in no apparent distress. comfortable, Behavior is cooperative, agitated. Pain: Denies pain. Neuro: Level of Consciousness is awake, alert, Oriented to person, Speech is normal. Cardiovascular: Patient's skin is warm and dry. Respiratory: Airway is patent Respiratory effort is even, unlabored, Respiratory pattern is regular, symmetrical. Derm: No signs and/or symptoms reported regarding the dermatologic system. Skin is pink, warm \\T\\ dry. normal. Musculoskeletal: Circulation, motion, and sensation intact. 19:15 Reassessment: Patient appears in no apparent distress at this time. No changes from aj1 previously documented assessment. Patient and/or family updated on plan of care and expected duration. Pain level reassessed. 20:15 Reassessment: Patient and/or family updated on plan of care and expected duration. Pain aj1 level reassessed. General: Appears in no apparent distress. comfortable, Behavior is calm, cooperative. Pain: Denies pain. Neuro: Level of Consciousness is awake, alert, obeys commands, Oriented to person, place, Speech is normal. Cardiovascular: Patient's skin is warm and dry. Respiratory: Airway is patent Respiratory effort is even, unlabored, Respiratory pattern is regular, symmetrical. Derm: No signs and/or symptoms reported regarding the dermatologic system. Skin is pink, warm \\T\\ dry. normal. Musculoskeletal: No signs and/or symptoms reported regarding the musculoskeletal system. Circulation, motion, and sensation intact. 21:15 Reassessment: Patient appears in no apparent distress at this time. No changes from aj1 previously documented assessment. Patient and/or family updated on plan of care and expected duration. Pain level reassessed. 22:02 Reassessment: Patient and/or family updated on plan of care and expected duration. Pain aj1 level reassessed. General: Appears in no apparent distress. comfortable, Behavior is calm, cooperative. Pain: Denies pain. Neuro: Level of Consciousness is awake, alert, Oriented to person, Speech. Cardiovascular: Patient's skin is warm and dry. Respiratory: Airway is patent Respiratory effort is even, unlabored, Respiratory pattern is regular, symmetrical. Derm: No signs and/or symptoms reported regarding the dermatologic system. Skin is pink, warm \\T\\ dry. normal. Musculoskeletal: Circulation, motion, and sensation intact. Vital Signs: 11:22 BP 123 / 58; Pulse 64; Resp 18; Temp 97.3(TE); Pulse Ox 96% on R/A; Weight 54.43 kg; hj Height 5 ft. 0 in. (152.40 cm); 12:30 BP 149 / 79; Pulse 71; Resp 18; Pulse Ox 95% on R/A; aj1 13:30 BP 155 / 77; Pulse 81; Resp 20; Pulse Ox 96% on R/A; aj1 14:23 BP 165 / 82; Pulse 81; Resp 18; Pulse Ox 95% on R/A; aj1 16:46 BP 169 / 75; Pulse 89; Resp 18; Pulse Ox 96% on R/A; aj1 17:20 BP 152 / 82; Pulse 91; Resp 20; Temp 97.9(TE); Pulse Ox 96% on R/A; aj1 18:19 BP 167 / 88; Pulse 86; Resp 20; Temp 98.2(TE); Pulse Ox 95% on R/A; aj1 19:15 BP 165 / 75; Pulse 88; Resp 17; Pulse Ox 96% on R/A; aj1 20:15 BP 172 / 85; Pulse 82; Resp 20; Pulse Ox 93% on R/A; aj1 21:15 BP 166 / 72; Pulse 75; Resp 20; Pulse Ox 95% on R/A; aj1 22:12 BP 169 / 78; Pulse 81; Resp 20; Temp 99.6; Pulse Ox 94% on R/A; aj1 11:22 Body Mass Index 23.44 (54.43 kg, 152.40 cm) hj ED Course: 11:18 Patient arrived in ED. hj 11:21 Donald Loco MD is Attending Physician. gs 11:22 Triage completed. hj 11:25 Arm band placed on right wrist. hj 11:26 Patient has correct armband on for positive identification. Placed in gown. Bed in low hj position. Call light in reach. Side rails up X2. 11:32 Rene Jenkins RN is Primary Nurse. hj 11:45 First set of blood cultures drawn by me. jb1 11:51 EKG done, by personnel technician. reviewed by Donald Loco MD. at1 12:00 Second set of blood cultures drawn by me. jb1 12:05 Initial lab(s) drawn, by me, sent to lab. Inserted saline lock: 22 gauge in left jb1 antecubital area, using aseptic technique. Blood collected. 12:15 X-ray completed. Portable x-ray completed in exam room. Patient tolerated procedure 1 well. 12:15 No provider procedures requiring assistance completed. aj1 12:17 Chest Single View XRAY In Process Unspecified. EDMS 14:20 Danni Betts, RN is Primary Nurse. aj1 16:30 Straight cath inserted, using sterile technique, Specimen obtained. aj1 17:14 Wilma Green MD is Hospitalizing Provider. gs 18:20 Patient admitted, IV remains in place. aj1 20:20 Urine Culture Sent. aj1 20:42 CT Abd/Pelvis - Without Cont: oral only In Process Unspecified. EDMS 22:14 Report given to KIKO Loera on 4th floor. aj1 Administered Medications: 12:08 Drug: NS 0.9% 1000 ml Route: IV; Rate: 1 bolus; Site: left antecubital; aj1 17:22 Follow up: IV Status: Completed infusion; IV Intake: 1000ml aj1 18:02 Drug: Meropenem 1 grams Route: IV; Rate: calculated rate; Site: left antecubital; aa5 19:48 Follow up: IV Status: Completed infusion; IV Intake: 100ml aj1 Intake: 17:22 IV: 1000ml; Total: 1000ml. aj1 19:48 IV: 100ml; Total: 1100ml. aj1 Outcome: 17:15 Decision to Hospitalize by Provider. gs 22:24 Admitted to Tele accompanied by nurse, via stretcher, with chart. aj1 22:24 Condition: stable 22:24 Discharge instructions given to patient, Instructed on the need for admit, Demonstrated understanding of instructions. 22:25 Patient left the ED. aj1 Signatures: Dispatcher [employer] [facility] Stoney Myers 1 Danni Betts, RN RN aj1 Itzel Alexander 1 Meghan Eugene RN RN aa5 Laurie Hdez, dude wrangler EKG Tat1 Rene Jenkins RN RN hj Starr, Gregory, MD MD Corrections: (The following items were deleted from the chart) 16:18 15:20 Reassessment: Patient appears in no apparent distress at this time. No changes aj1 from previously documented assessment. Patient and/or family updated on plan of care and expected duration. Pain level reassessed. aj1 18:18 12:15 Neuro: Level of Consciousness is awake, alert, obeys commands, Oriented to aj1 person, place, situation, Speech is normal, aj1
--- NOTE | 2018-12-29 17:16 | EDPHYS ---
Physician Documentation [facility] Name: Nikia Turner Age: 83 yrs Sex: Female : 1935 Arrival Date: 12/29/2018 Time: 11:18 Bed 2 Private MD: ED Physician Donald Loco HPI: 12/30 10:32 This 83 yrs old Female presents to ER via EMS with complaints of Altered gs Mental Status. 10:32 The patient presents with agitation. Onset: The symptoms/episode began/occurred 3 gs day(s) ago. Possible causes: sepsis. Associated signs and symptoms: Pertinent negatives: numbness. Current symptoms: In the emergency department the patient's symptoms are unchanged from the initial presentation. 11:59 Patient's baseline: The patient has a previous history of dementia. gs Historical: - Allergies: 12/29 11:24 Botox; hj 11:24 INFLUENZA VIRUS VACCINES; hj 11:24 meloxicam; hj 11:24 PENICILLINS; hj 11:24 Pneumococcal Vaccines; hj - Home Meds: 18:30 aspirin 81 mg Oral chew 1 tab once daily [Active]; metoprolol tartrate 12.5MG Oral tab aj1 1 tab 2 times per day [Active]; Macrobid 100 mg Oral cap 1 cap every 12 hours [Active]; tramadol 50 mg Oral tab 1 tab every 8 hours as needed for pain [Active]; Lipitor 40 mg Oral tab 1 tab once daily [Active]; alendronate sodium-cholecalciferol(vitamin D3) Oral 1 tab once wkly [Active]; MagOx 400 mg Oral tab daily [Active]; senna 8.6 mg oral tab 2 tabs twice daily [Active]; alprazolam 1 mg Oral tab twice a day [Active]; [place]-3 oral oral daily [Active]; Multiple Vitamins oral tab daily [Active]; cholecalciferol (vitamin D3) oral oral daily [Active]; gabapentin 300 mg Oral cap 2 caps nightly [Active]; docusate sodium 100 mg Oral cap 1 cap once daily [Active]; melatonin 3 mg Oral tab nightly [Active]; - PMHx: 11:24 Age related osteoporosis; Anxiety; cognitive communication deficit; Erythromelalgia; hj Generalized Muscle Weakness; GERD without Esophagitis; Hypertension; Spinal Stenosis (Lumbar Region); Spondylolysis (Lumbar Region); - PSHx: 11:24 Unable to obtain; hj - Immunization history:: Adult Immunizations not immunized. - Social history:: Smoking status: Patient/guardian denies using tobacco, Patient/guardian denies using alcohol. - Ebola Screening: : Patient negative for fever greater than or equal to 101.5 degrees Fahrenheit, and additional compatible Ebola Virus Disease symptoms Patient denies exposure to infectious person Patient denies travel to an Ebola-affected area in the 21 days before illness onset. ROS: 12/30 11:59 Unable to obtain ROS due to baseline dementia. gs Exam: 11:59 Head/Face: Normocephalic, atraumatic. Eyes: Pupils equal round and reactive to light, gs extra-ocular motions intact. Lids and lashes normal. Conjunctiva and sclera are non-icteric and not injected. Cornea within normal limits. Periorbital areas with no swelling, redness, or edema. ENT: Nares patent. No nasal discharge, no septal abnormalities noted. Tympanic membranes are normal and external auditory canals are clear. Oropharynx with no redness, swelling, or masses, exudates, or evidence of obstruction, uvula midline. Mucous membranes moist. Neck: Trachea midline, no thyromegaly or masses palpated, and no cervical lymphadenopathy. Supple, full range of motion without nuchal rigidity, or vertebral point tenderness. No Meningismus. Chest/axilla: Normal chest wall appearance and motion. Nontender with no deformity. No lesions are appreciated. Cardiovascular: Regular rate and rhythm with a normal S1 and S2. No gallops, murmurs, or rubs. Normal PMI, no JVD. No pulse deficits. Respiratory: Lungs have equal breath sounds bilaterally, clear to auscultation and percussion. No rales, rhonchi or wheezes noted. No increased work of breathing, no retractions or nasal flaring. Abdomen/GI: Soft, non-tender, with normal bowel sounds. No distension or tympany. No guarding or rebound. No evidence of tenderness throughout. Back: No spinal tenderness. No costovertebral tenderness. Full range of motion. Skin: Warm, dry with normal turgor. Normal color with no rashes, no lesions, and no evidence of cellulitis. MS/ Extremity: Pulses equal, no cyanosis. Neurovascular intact. Full, normal range of motion. 11:59 Constitutional: The patient appears awake. 11:59 Neuro: Orientation: Not oriented to time, situation, Cranial nerves: grossly normal, Cerebellar function: is grossly normal, Motor: is normal, Sensation: is normal. 12:02 ECG was reviewed by the Attending Physician. Vital Signs: 12/29 11:22 BP 123 / 58; Pulse 64; Resp 18; Temp 97.3(TE); Pulse Ox 96% on R/A; Weight 54.43 kg; Height 5 ft. 0 in. (152.40 cm); 12:30 BP 149 / 79; Pulse 71; Resp 18; Pulse Ox 95% on R/A; aj1 13:30 BP 155 / 77; Pulse 81; Resp 20; Pulse Ox 96% on R/A; aj1 14:23 BP 165 / 82; Pulse 81; Resp 18; Pulse Ox 95% on R/A; aj1 16:46 BP 169 / 75; Pulse 89; Resp 18; Pulse Ox 96% on R/A; aj1 17:20 BP 152 / 82; Pulse 91; Resp 20; Temp 97.9(TE); Pulse Ox 96% on R/A; aj1 18:19 BP 167 / 88; Pulse 86; Resp 20; Temp 98.2(TE); Pulse Ox 95% on R/A; aj1 19:15 BP 165 / 75; Pulse 88; Resp 17; Pulse Ox 96% on R/A; aj1 20:15 BP 172 / 85; Pulse 82; Resp 20; Pulse Ox 93% on R/A; aj1 21:15 BP 166 / 72; Pulse 75; Resp 20; Pulse Ox 95% on R/A; aj1 22:12 BP 169 / 78; Pulse 81; Resp 20; Temp 99.6; Pulse Ox 94% on R/A; aj1 11:22 Body Mass Index 23.44 (54.43 kg, 152.40 cm) MDM: 11:35 Patient medically screened. 12/30 11:59 Differential Diagnosis: electrolyte abnormality, pneumonia, sepsis. Data reviewed: vital signs, nurses notes. Response to treatment: the patient's symptoms have mildly improved after treatment, and as a result, I will admit patient. 12/29 11:37 Order name: Basic Metabolic Panel 12/29 11:37 Order name: Blood Culture Adult (2) 12/29 11:37 Order name: CBC with Diff 12/29 11:37 Order name: Ckmb 12/29 11:37 Order name: Lactate 12/29 11:37 Order name: LFT's; Complete Time: 14:09 12/29 11:37 Order name: Lipase; Complete Time: 14:09 12/29 11:37 Order name: Procalcitonin 12/29 11:37 Order name: Protime (+inr); Complete Time: 12:33 12/29 11:37 Order name: Troponin (emerg Dept Use Only); Complete Time: 14:09 12/29 11:37 Order name: Urine Microscopic Only; Complete Time: 20:13 12/29 11:39 Order name: Basic Metabolic Panel; Complete Time: 14:09 [facility] 12/29 11:39 Order name: Blood Culture [facility] 12/29 11:39 Order name: CBC with Automated Diff; Complete Time: 12:33 [facility] 12/29 11:37 Order name: Chest Single View XRAY; Complete Time: 12:33 12/29 11:37 Order name: Accucheck; Complete Time: 12:05 12/29 11:37 Order name: Cardiac monitoring; Complete Time: 11:41 12/29 11:37 Order name: EKG - Nurse/Tech; Complete Time: 12:05 12/29 11:37 Order name: IV Saline Lock - Large Bore; Complete Time: 12:05 12/29 11:37 Order name: Labs collected and sent; Complete Time: 12:06 12/29 11:37 Order name: O2 Per Protocol; Complete Time: 11:40 12/29 11:39 Order name: CKMB Creatine Kinase MB; Complete Time: 14:09 [facility] 12/29 11:39 Order name: Lactate; Complete Time: 14:09 [facility] 12/29 16:50 Order name: Urine Dipstick--Ancillary (enter results); Complete Time: 20:13 12/29 17:14 Order name: Urine Culture [facility] 12/29 17:49 Order name: EKG Electrocardiogram; Complete Time: 17:49 [facility] 12/29 20:15 Order name: CT Abd/Pelvis - Without Cont: oral only [facility] 12/29 11:37 Order name: O2 Sat Monitoring; Complete Time: 11:40 12/29 11:37 Order name: Urine Dipstick-Ancillary (obtain specimen); Complete Time: 16:47 EC:02 Rate is 67 beats/min. Rhythm is regular. [place] interval is normal. QRS interval is normal. gs QT interval is normal. T waves are Normal. No ST changes noted. Clinical impression: Abnormal EKG without significant change. Interpreted by me. Administered Medications: 12/29 12:08 Drug: NS 0.9% 1000 ml Route: IV; Rate: 1 bolus; Site: left antecubital; [facility] 17:22 Follow up: IV Status: Completed infusion; IV Intake: 1000ml [facility] 18:02 Drug: Meropenem 1 grams Route: IV; Rate: calculated rate; Site: left antecubital; aa5 19:48 Follow up: IV Status: Completed infusion; IV Intake: 100ml [facility] Disposition: 12/29/18 17:15 Hospitalization ordered by Wilma Green for Inpatient Admission. Preliminary diagnosis is Acute tubulo-interstitial nephritis. - Bed requested for Telemetry/MedSurg (Inpatient). - Status is Inpatient Admission. aj1 - Condition is Stable. - Problem is new. - Symptoms have improved. UTI on Admission? Yes Signatures: Dispatcher [employer] EDCT Danni Betts RN RN aj1 Jeovanny Brewster MD MD cha Calderon, Audri RN RN aa5 Rene Jenkins RN RN hj Fitzgerald, Diane, RN RN Donald Loco MD MD Corrections: (The following items were deleted from the chart) 20:37 20:16 Abdomen Limited+US.RAD.BRZ ordered. [facility] EDCT 21:34 17:15 Hospitalization Ordered by Wilma Green MD for Inpatient Admission. Preliminary df diagnosis is Acute tubulo-interstitial nephritis. Bed requested for Telemetry/MedSurg (Inpatient). Status is Inpatient Admission. Condition is Stable. Problem is new. Symptoms have improved. UTI on Admission? Yes. 22:25 21:34 12/29/2018 17:15 Hospitalization Ordered by Wilma Green MD for Inpatient aj1 Admission. Preliminary diagnosis is Acute tubulo-interstitial nephritis. Bed requested for Telemetry/MedSurg (Inpatient). Status is Inpatient Admission. Condition is Stable. Problem is new. Symptoms have improved. UTI on Admission? Yes. df
[2018-12-29] MEDS ORDERED: Meropenem 1 GM/100 ML BAG ONE (18:13)
--- NOTE | 2018-12-29 20:50 | RAD REPORT ---
EXAM DESCRIPTION: CT - Abdomen Pelvis Wo Contrast - 12/29/2018 8:42 pm CLINICAL HISTORY: Abdominal pain. ABD PAIN COMPARISON: No comparisons TECHNIQUE: CT imaging of the abdomen and pelvis was performed without contrast. Solid organ, bowel a nd vascular assessment is limited due to lack of IV and oral contrast. All CT scans are performed using dose optimization technique as appropriate and may include automated exposure control or mA/KV adjustment according to patient size. FINDINGS: Trace bilateral pleural effusions. The liver demonstrates no focal mass or intrahepatic/ extrahepatic biliary tree dilatation.The spleen , pancreas, right adrenal gland are normal. Mild thickening of the left adrenal gland seen. The right kidney has an abnormal enlarged and edematous appearance with effacement of the right renal pelvic f at seen. There is fat stranding around the right kidney and proximal right ureter. The findings sugge st right-sided pyelonephritis. No left renal stone or hydronephrosis. No bowel obstruction, free air, free fluid or abscess. Significant amount of stool is retained in the colon with trace pelvic free fluid. The appendix is not identified as a discrete structure, however, no secondary findings of appendicitis are identified. Advanced lumbar degenerative changes. IMPRESSION: The findings are most consistent with right-sided pyelonephritis. Lack of contrast mater ial limits assessment. Prominent fecal retention in the colon. A limited non-contrast examination was performed as detailed.
--- NOTE | 2018-12-29 21:48 | P.HP ---
Certification for Inpatient Patient admitted to: Inpatient With expected LOS: >2 Midnights Practitioner: I am a practitioner with admitting privileges, knowledge of patient current condition, hospital course, and medical plan of care. Services: Services provided to patient in accordance with Admission requirements found in Title 42 Section 412.3 of the Code of Federal Regulations Patient History Date of Service: 12/29/18 Reason for admission: acute pyelonephritis History of Present Illness: Ms Turner is an 83 years old woman with history of Dementia, HTN, CKD, resident of a assisted, who was found more lethargic and confused today. She had a UA which was positive for UTI, then she was sent to ED for further evaluation and treatment. No history of fever, chills, nausea, vomiting or abdominal pain. Lab work remarkable for leukocytosis, normal lactate but elevated procalcitonin. Liver enzymes and alk phos abnormal. Subsequent CT abd/pelvis shows normal gallbladder and biliary tree but significant signs of right pyelonephritis. Allergies Influenza Virus Vaccines Allergy (Verified 12/16/18 19:45) Hives/Rash meloxicam Allergy (Verified 12/16/18 19:45) Hives/Rash onabotulinumtoxinA [From Botox] Allergy (Verified 12/16/18 19:45) Hives/Rash Penicillins Allergy (Verified 12/16/18 19:45) Hives/Rash pneumococcal vaccine Allergy (Verified 12/16/18 19:45) Hives/Rash Home medications list reviewed: Yes Home Medications: ALPRAZolam [Xanax*] 1 mg PO BID 12/16/18 Acetaminophen [Tylenol] 325 mg PO Q6HP PRN 12/16/18 Acetaminophen [Tylenol] 650 mg PO DAILY 12/16/18 Cholecalciferol (Vitamin D3) [Vitamin D3] 1,000 unit PO DAILY 12/16/18 Diphenhydramine [Benadryl*] 25 mg PO BIDP PRN 12/16/18 Docusate Sodium 100 mg PO BID 12/16/18 Gabapentin [Neurontin] 600 mg PO BEDTIME 12/16/18 Lactobacillus Acidophilus [Acidophilus Lactobacilli] 1 each PO BID 12/16/18 Loperamide HCl [Loperamide] 2 mg PO Q6HP PRN 12/16/18 Loratadine [Claritin*] 10 mg PO DAILY 12/16/18 Magnesium Oxide [Mag 0X*] 400 mg PO DAILY 12/16/18 Melatonin [Melatin] 3 mg PO BEDTIME 12/16/18 Multivitamin [Multivitamins] 1 each PO DAILY 12/16/18 [place]-3 Fatty Acids [[place]-3] 1,000 mg PO DAILY 12/16/18 Omeprazole 20 mg PO DAILY 12/16/18 Ondansetron [Ondansetron Odt] 4 mg PO Q8HP PRN 12/16/18 Propylene Glycol/Peg 400/Pf [Systane Ultra 0.4-0.3% Eye Drp] 2 each OP Q1HWA 11/01 Sennosides [Senna Lax] 8.6 mg PO BID 12/16/18 Tramadol HCl [Ultram] 50 mg PO TID 12/16/18 Alendronate Sodium 70 mg PO SEECOM #4 tablet 12/17/18 Aspirin [Aspirin EC 81 MG] 81 mg PO DAILY #90 tablet.dr 12/17/18 Atorvastatin Calcium [Lipitor*] 40 mg PO BEDTIME #30 tab 12/17/18 Metoprolol Tartrate [Lopressor*] 12.5 mg PO BID 6AM 6PM #60 tab 12/17/18 - Past Medical/Surgical History Diabetic: No -: Hypertension -: Chronic renal disease, stage 3 -: Dementia -: Spinal stenosis with prior surgery -: GERD -: Anxiety -: Spinal surgery -: Hysterectomy Psychosocial/ Personal History: Patient has been at [facility] for over 2 years. - Family History Family History: Reviewed- Non-Contributory - Social History Smoking Status: Never smoker Alcohol use: No CD- Drugs: No Caffeine use: Yes Place of Residence: [facility] Review of Systems 10-point ROS is otherwise unremarkable Physical Examination - Physical Exam General: Alert, In no apparent distress, Demented, Confused HEENT: Atraumatic, PERRLA, Mucous membr. moist/pink, EOMI, Sclerae nonicteric Neck: Supple, 2+ carotid pulse no bruit, No LAD, Without JVD or thyroid abnormality Respiratory: Clear to auscultation bilaterally, Normal air movement Cardiovascular: Normal S1 S2, No gallops Gastrointestinal: Normal bowel sounds, No tenderness Musculoskeletal: No tenderness Integumentary: No rashes Neurological: Normal speech, Normal strength at 5/5 x4 extr, Normal tone, Normal affect Lymphatics: No axilla or inguinal lymphadenopathy - Studies Laboratory Data (last 24 hrs) 12/29/18 12:00: PT 12.8 H, INR 1.09 12/29/18 12:00: WBC 12.8 H, Hgb 10.9 L, Hct 33.2 L, Plt Count 373 12/29/18 12:00: Sodium 144, Potassium 4.2, BUN 38 H, Creatinine 1.68 H, Glucose 111 H, Total Bilirubin 0.4, AST 191 H, ALT 207 H, Alkaline Phosphatase 458 H, Lipase 97 Assessment and Plan - Problems (Diagnosis) (1) Pyelonephritis Current Visit: Yes Status: Acute (2) HTN (hypertension) Current Visit: Yes Status: Acute Qualifiers: Hypertension type: essential hypertension Qualified Code(s): I10 - Essential (primary) hypertension (3) CKD (chronic kidney disease) Current Visit: Yes Status: Acute Qualifiers: Chronic kidney disease stage: stage 3 (moderate) Qualified Code(s): N18.3 - Chronic kidney disease, stage 3 (moderate) (4) Dementia Current Visit: Yes Status: Acute Qualifiers: Dementia type: Alzheimer's disease Alzheimer's disease onset: unspecified onset Dementia behavioral disturbance: without behavioral disturbance Qualified Code(s): G30.9 - Alzheimer's disease, unspecified; F02.80 - Dementia in other diseases classified elsewhere without behavioral disturbance - Plan The patient will be admitted to to the hospital due to acute encephalopathy secondary to right pyelonephritis. Will continue with IV Levaquin adjusted to her renal function. - Advance Directives Does patient have a Living Will: Yes Does patient have a Durable POA for Healthcare: Yes - Code Status/Comfort Care Code Status Assessed: Yes Code Status: Do Not Resuscitate
[2018-12-29] MEDS ORDERED: ACETAMINOPHEN 500 MG TAB PO PRN (22:39)
[2018-12-29] MEDS ORDERED: Levofloxacin500mg IV 500 MG/100 ML BAG IV ONE (22:39)
[2018-12-29] MEDS ORDERED: ONDANSETRON 4 MG/2 ML VIAL IV PRN (22:39)
[2018-12-30] MEDS: NA CHLORIDE 0.9% 1,000 ML IV SCH ×2 (00:11→18:39)
[2018-12-30 07:01] LABS: Absolute Lymphocytes (CBC) 0.9 K/uL (0.7-4.9); Absolute Monocytes 1.3 K/uL (0.1-1.3); Absolute Neutrophil 9.9 K/uL (1.8-8.0); Basophils % 0.4 % (0-1.3); Eosinophils % 1.1 % (0-4.4); Hematocrit 34.6 % (36.0-45.0); Lymphocytes % 7.5 % (15.3-44.8); MPV 8.5 fL (7.6-11.3); Monocytes % 10.9 % (3.3-12.3)
[2018-12-30 07:07] LABS: Albumin 2.6 g/dL (3.4-5.0); Bilirubin Total 0.5 mg/dL (0.2-1.0); Potassium 3.9 mmol/L (3.5-5.1); Protein, Total 6.7 g/dL (6.4-8.2)
[2018-12-30 07:57] LABS: Blood Morphology Comment NOT SEEN (NOT SEEN); Platelet Estimate ADEQ; Urine White Blood Cell Casts OK
--- NOTE | 2018-12-30 08:31 | EKG ---
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
[2018-12-30] MEDS ORDERED: POTASSIUM 25 MEQ EFFERV TAB PO ONE (09:00)
[2018-12-30] MEDS ORDERED: TRAMADOL HCL 50 MG TAB PO PRN (09:58)
[2018-12-30] MEDS ORDERED: BISACODYL 10 MG RECTAL SUPP PR ONE (10:06)
[2018-12-30] MEDS: HEPARIN 5000 UNIT/ML 1 ML VIAL SQ SCH ×2 (10:50→22:46)
[2018-12-30] MEDS: DOCUSATE NA 100 MG CAP PO SCH ×2 (10:51→20:32)
[2018-12-30] MEDS: SENOSIDES 8.6 MG TAB PO SCH ×2 (10:51→20:32)
[2018-12-30] MEDS: LORATADINE 10 MG TAB PO SCH (10:51)
[2018-12-30] MEDS: ASPIRIN EC 81 MG TAB PO SCH (10:51)
[2018-12-30] MEDS: METOPROLOL TAR 25 MG TAB PO SCH ×2 (10:54→19:20)
--- NOTE | 2018-12-30 16:46 | PN ---
Date of Progress Note: 12/30/2018 Code Status: Do not resuscitate. Subjective: The patient seen and examined, chart reviewed and case discussed with RN. The patient i s demented, [facility] patient, very much confused, agitated, aggressive, trying to get out of bed, however, asks for assistance. Medications: List reviewed. Objective: Vital Signs: Temperature 98.2, heart rate 78, blood pressure 180/77, respirations 20, O2 95% on room air. General: Awake, alert, oriented x1. Elderly female, ill-appearing. CV: S1, S2. Regular rate and rhythm. Peripheral pulses present. Respiratory: Moving air well bilaterally. No wheezing. Gastrointestinal: Abdomen is soft, nontender, nondistended. Positive bowel sounds. Extremities: No clubbing, cyanosis, or edema. Neurologic: Nonfocal. Laboratory Data: Sodium 143, potassium 3.9 chloride 114, CO2 23, BUN 28, creatinine 1.3, glucose 88, calcium 8.4, AST 251, ALT 228, alkaline phosphatase 541, albumin 2.6. WBC 12.3, H and H 11.5 and 34 .6, neutrophils 80%. Blood cultures and urine cultures pending. Assessment: An 83-year-old female with: 1.Acute pyelonephritis on the right side. We will continue with intravenous antibiotics. White blo od cell count still elevated. Follow up on culture results. 2.Essential hypertension. Resume home medications as appropriate, not well controlled. 3.Chronic kidney disease stage 3. We will monitor creatinine level. Avoid nonsteroidal anti-inflam matory drugs. 4.Alzheimer dementia with behavioral disturbance, early onset. We will place the patient on fall pr ecautions. 5.Severe protein-calorie malnutrition. Albumin is 2.4. 6.Gastroesophageal reflux disease without esophagitis. We will continue PPI. 7.Generalized anxiety disorder. We will hold benzodiazepines for now, may worsen her agitation. 8.Elevated liver enzymes, unclear etiology. We will obtain hepatitis panel. 9.Acute metabolic encephalopathy secondary to acute infection. Plan: Continue antibiotics. Anticipate discharge in the next 24-48 hours depending on clinical resp onse. SA/MODL Voice ID: [id number] Report ID: [id number]
[2018-12-30] MEDS ORDERED: Meropenem 1000 MG/VIAL IV SCH (17:00)
[2018-12-30] MEDS: Meropenem 1,000 MG in NA CHLORIDE 0.9% 100 ML IV SCH (18:18)
[2018-12-30] MEDS: ALPRAZOLAM 1 MG TABLET PO PRN (20:32)
[2018-12-30] MEDS: ATORVASTATIN 40 MG TAB PO SCH (20:32)
[2018-12-30] MEDS: GABAPENTIN 300 MG CAP PO SCH (20:32)
[2018-12-30] MEDS: MELATONIN 3 MG TABLET PO SCH (20:33)
[2018-12-31] MEDS: Meropenem 1,000 MG in NA CHLORIDE 0.9% 100 ML IV SCH ×3 (01:02→17:00)
[2018-12-31] MEDS: NA CHLORIDE 0.9% 1,000 ML IV SCH ×2 (04:09→04:39)
[2018-12-31] MEDS: METOPROLOL TAR 25 MG TAB PO SCH ×2 (05:14→17:38)
[2018-12-31 05:58] LABS: Absolute Lymphocytes (CBC) 0.9 K/uL (0.7-4.9); Absolute Monocytes 1.1 K/uL (0.1-1.3); Absolute Neutrophil 11.1 K/uL (1.8-8.0); Basophils % 0.3 % (0-1.3); Eosinophils % 1.2 % (0-4.4); Hematocrit 34.3 % (36.0-45.0); Lymphocytes % 6.8 % (15.3-44.8); MPV 8.5 fL (7.6-11.3); Monocytes % 8.6 % (3.3-12.3); RBC Red Blood Cell Count 3.81 M/uL (3.86-4.86)
[2018-12-31 06:11] LABS: Albumin 2.4 g/dL (3.4-5.0); Bilirubin Total 0.3 mg/dL (0.2-1.0); Magnesium 2.4 mg/dL (1.8-2.4); Potassium 3.7 mmol/L (3.5-5.1); Protein, Total 6.2 g/dL (6.4-8.2)
[2018-12-31] MEDS ORDERED: POTASSIUM CL SA 10 MEQ TAB PO ONE (09:00)
[2018-12-31] MEDS: DOCUSATE NA 100 MG CAP PO SCH ×2 (10:30→20:25)
[2018-12-31] MEDS: LORATADINE 10 MG TAB PO SCH (10:30)
[2018-12-31] MEDS: ASPIRIN EC 81 MG TAB PO SCH (10:30)
[2018-12-31] MEDS: SENOSIDES 8.6 MG TAB PO SCH ×2 (10:30→20:25)
[2018-12-31] MEDS: HEPARIN 5000 UNIT/ML 1 ML VIAL SQ SCH ×2 (10:31→20:26)
[2018-12-31] MEDS: ALPRAZOLAM 1 MG TABLET PO PRN (14:49)
--- NOTE | 2018-12-31 16:14 | PN ---
Date of Progress Note: 12/31/2018 Subjective: Patient seen and examined. Chart reviewed and case discussed with RN. Spoke with shanell sánchez at length yesterday. Medications: List reviewed. Physical Examination: Vital Signs: Temperature 98.2, heart rate 74, blood pressure 155/76, respirations 16, O2 is 96% on r oom air. General: Awake, alert, oriented to self, not in any acute distress, elderly female. CV: S1, S2. Regular rate and rhythm. Peripheral pulses present. Respiratory: Moving air well bilaterally. No wheezing or stridor. Gastrointestinal: Abdomen is soft, nontender, nondistended. Positive bowel sounds. Extremities: No clubbing, cyanosis, or edema. Neurologic: Nonfocal. The patient does have generalized weakness over lower extremities. Laboratory Data: Sodium 146, potassium 3.7, chloride 118, CO2 21, BUN 25, creatinine 1.2, glucose 88 , calcium 8.1, magnesium 2.4, AST 184, ALT 219, alkaline phosphatase 448, albumin 2.4. WBC 13.4, H a nd H 11.4 and 34.3, platelets 272. Blood cultures, no growth to date. Repeat urine culture growing out 4+ gram-negative rods. Assessment And Plan: An 83-year-old female with; 1.Acute pyelonephritis on the right, secondary to extended-spectrum beta-lactamase Escherichia coli and Proteus which is also ESBL producing. Repeat cultures are also growing 4+ gram-negative rods. W e will continue with meropenem. White count trending up. We will recheck procalcitonin. The patijanelle t had PICC line placed yesterday, however, the patient pulled it out this morning. 2.Essential hypertension not well-controlled. We will resume home medications. 3.Hypernatremia. We will adjust IV fluids. 4.Chronic kidney disease stage 3. We will continue to monitor creatinine level. Avoid NSAIDs. 5.Alzheimer's dementia with behavioral disturbance, early onset. 6.Severe protein-calorie malnutrition, continue protein supplementation. 7.Gastroesophageal reflux disease without esophagitis, continue PPI. 8.Generalized anxiety disorder. Continue benzodiazepines in order to prevent withdrawal. 9.Elevated liver enzymes. Follow up on hepatitis panel, unclear etiology. 10.Acute metabolic encephalopathy secondary to acute infection, improving. Per daughter, the patijanelle rivera is not back to her baseline. Plan: We will need to have PICC line replaced. We will discuss with daughter, patient will likely n eed a sitter at the bedside. /TING Voice ID: [id number] Report ID: [id number]
[2018-12-31] MEDS ORDERED: Levofloxacin 250mg IV 250 MG/50 ML BAG IV SCH (20:00)
[2018-12-31] MEDS: GABAPENTIN 300 MG CAP PO SCH (20:25)
[2018-12-31] MEDS: MELATONIN 3 MG TABLET PO SCH (20:25)
[2018-12-31] MEDS: ATORVASTATIN 40 MG TAB PO SCH (20:26)
[2019-01-01] MEDS: Meropenem 1,000 MG in NA CHLORIDE 0.9% 100 ML IV SCH ×3 (01:04→16:40)
[2019-01-01] MEDS: METOPROLOL TAR 25 MG TAB PO SCH ×2 (05:14→16:41)
[2019-01-01 06:31] LABS: Absolute Lymphocytes (CBC) 1.3 K/uL (0.7-4.9); Absolute Monocytes 1.2 K/uL (0.1-1.3); Absolute Neutrophil 11.1 K/uL (1.8-8.0); Basophils % 0.6 % (0-1.3); Eosinophils % 2.4 % (0-4.4); Hematocrit 35.1 % (36.0-45.0); Lymphocytes % 9.2 % (15.3-44.8); MPV 8.4 fL (7.6-11.3); Monocytes % 8.5 % (3.3-12.3); RBC Red Blood Cell Count 3.87 M/uL (3.86-4.86)
[2019-01-01 07:00] LABS: Albumin 2.6 g/dL (3.4-5.0); Bilirubin Total 0.3 mg/dL (0.2-1.0); Potassium 3.7 mmol/L (3.5-5.1); Protein, Total 6.6 g/dL (6.4-8.2)
[2019-01-01 08:19] LABS: Blood Morphology Comment NOT SEEN (NOT SEEN); Platelet Estimate ADEQ
[2019-01-01] MEDS: SENOSIDES 8.6 MG TAB PO SCH ×2 (08:31→20:00)
[2019-01-01] MEDS: ASPIRIN EC 81 MG TAB PO SCH (08:31)
[2019-01-01] MEDS: LORATADINE 10 MG TAB PO SCH (08:31)
[2019-01-01] MEDS: DOCUSATE NA 100 MG CAP PO SCH ×2 (08:31→19:59)
[2019-01-01] MEDS: HEPARIN 5000 UNIT/ML 1 ML VIAL SQ SCH ×2 (08:32→20:00)
[2019-01-01] MEDS ORDERED: POTASSIUM CL SA 10 MEQ TAB PO ONE (09:00)
[2019-01-01] MEDS ORDERED: MAGNESIUM CITRATE 300 ML BOT PO SCH (10:00)
--- NOTE | 2019-01-01 15:27 | PN ---
Date of Progress Note: 01/01/2019 Subjective: The patient is seen and examined. Chart reviewed and case discussed with RN. The patie nt had a large bowel movement today. PICC line in place. Sitter at the bedside. Medications: List reviewed. Physical Examination: Vital Signs: Temperature 98.8, heart rate 78, blood pressure 158/75, respirations 20, O2 97% on room air. General: Awake, alert, oriented x2, elderly female, demented. CV: S1, S2. Regular rate and rhythm. Peripheral pulses present. Respiratory: Moving air well bilaterally. No wheezing or stridor. Gastrointestinal: Abdomen is soft, nontender, nondistended. Positive bowel sounds. No guarding or rigidity. Extremities: No clubbing, cyanosis, or edema. Neurologic: Nonfocal. Laboratory Data: Sodium 147, potassium 3.7, chloride 117, CO2 23, BUN 22, creatinine 1.17, glucose 9 1, calcium 8.1, AST 122, ALT 181, alkaline phosphatase 406, albumin 2.6. Procalcitonin is down to 5. 06. WBC 00891, H and H 11.6 and 35.1, platelets 366. Urine culture growing out Proteus and E. coli, both ESBL producing. Assessment And Plan: An 83-year-old female with, 1.Acute pyelonephritis on the right, secondary to extended-spectrum beta-lactamase Escherichia coli and Proteus. Continue meropenem. WBC count still trending up. Procalcitonin is trending down. No signs of sepsis. The patient had a PICC line placed again yesterday. Sitter is in place so the jaja ent does not pull out her PICC line. 2.Essential hypertension, stable on home medications. 3.Hypernatremia. Normal saline was discontinued. We will continue to monitor. Slightly elevated a gain today at 147. 4.Chronic kidney disease, stage 3. Creatinine is stable. We will avoid NSAIDs. Continue to monito r. 5.Alzheimer's dementia with behavioral disturbance, early onset. The patient is on chronic benzodia zepines. 6.Severe protein-calorie malnutrition. We will continue protein supplementation. 7.Gastroesophageal reflux disease without esophagitis. We will continue PPI. 8.Generalized anxiety disorder, on benzodiazepines. 9.Elevated liver enzymes. Hepatitis panel trending down, unclear etiology. 10.Acute metabolic encephalopathy secondary to acute infection, improving. The patient now less adam tated. 11.Deep vein thrombosis prophylaxis. The patient is on heparin, renally dosed. Plan: Continue antibiotics. Once set up, may be discharged back to nursing facility [email or web address] Voice ID: [id number] Report ID: [id number]
[2019-01-01] MEDS: GABAPENTIN 300 MG CAP PO SCH (19:59)
[2019-01-01] MEDS: MELATONIN 3 MG TABLET PO SCH (19:59)
[2019-01-01] MEDS: ATORVASTATIN 40 MG TAB PO SCH (19:59)
[2019-01-02] MEDS: Meropenem 1,000 MG in NA CHLORIDE 0.9% 100 ML IV SCH ×3 (00:46→17:16)
[2019-01-02 04:57] LABS: Absolute Lymphocytes (CBC) 1.6 K/uL (0.7-4.9); Absolute Monocytes 1.1 K/uL (0.1-1.3); Absolute Neutrophil 10.1 K/uL (1.8-8.0); Basophils % 1.1 % (0-1.3); Eosinophils % 3.3 % (0-4.4); Hematocrit 35.5 % (36.0-45.0); Lymphocytes % 12.1 % (15.3-44.8); MPV 8.5 fL (7.6-11.3); Monocytes % 8.2 % (3.3-12.3); RBC Red Blood Cell Count 3.88 M/uL (3.86-4.86)
[2019-01-02] MEDS: METOPROLOL TAR 25 MG TAB PO SCH ×2 (05:12→17:11)
[2019-01-02 05:30] LABS: Albumin 2.4 g/dL (3.4-5.0); Bilirubin Total 0.4 mg/dL (0.2-1.0); Potassium 3.8 mmol/L (3.5-5.1); Protein, Total 6.2 g/dL (6.4-8.2)
[2019-01-02] MEDS ORDERED: POTASSIUM CL SA 10 MEQ TAB PO ONE (05:38)
[2019-01-02] MEDS: HEPARIN 5000 UNIT/ML 1 ML VIAL SQ SCH ×2 (10:27→20:27)
[2019-01-02] MEDS: SENOSIDES 8.6 MG TAB PO SCH ×2 (10:27→20:26)
[2019-01-02] MEDS: ASPIRIN EC 81 MG TAB PO SCH (10:27)
[2019-01-02] MEDS: DOCUSATE NA 100 MG CAP PO SCH ×2 (10:27→20:27)
[2019-01-02] MEDS: LORATADINE 10 MG TAB PO SCH (10:27)
[2019-01-02 11:58] LABS: HBsAG Nonreactive (Nonreactive); Hepatitis A IgM Antibody Nonreactive
--- NOTE | 2019-01-02 13:21 | RAD REPORT ---
EXAM DESCRIPTION: XR Chest Single View CLINICAL HISTORY: 83 years Female S/P PICC insertion TECHNIQUE: One view of the chest. COMPARISON: Comparison is made to the prior examination performed earlier the same day. FINDINGS: Right-sided PICC line again noted, with its tip projecting over the cavoatrial junction. Right lower lung airspace infiltrate more apparent than on the prior exam. Small left basilar pleural effusion. No pneumothorax. Stable cardiomediastinal silhouette. IMPRESSION: Right-sided PICC line in good position. Right lower lobe airspace infiltrate. Small left pleural effusion. Electronically signed by: Lakeshia Rebolledo MD 01/01/2019 12:12 AM CDT Due to temporary technical issues with the PACS/Fluency reporting system, reports are being signed by the in house radiologist as a courtesy to ensure prompt reporting. The interpreting radiologist is f ully responsible for the content of the report.
--- NOTE | 2019-01-02 13:25 | RAD REPORT ---
EXAM DESCRIPTION: RAD - Chest Single View - 12/31/2018 12:27 am CLINICAL HISTORY: PICC line placement. COMPARISON: None. TECHNIQUE: AP Chest. FINDINGS: Right subclavian PICC line noted with the tip in the inferior aspect of the superior vena cava. No pneumothorax. The cardiac size is normal. Mild aortic atelectasis versus. Mild vascular congestion. Minimal left pl eural fluid. No pneumothorax. No consolidation. Unremarkable soft tissues. Generalized decreased bone density. IMPRESSION: 1. Right subclavian PICC line placed in the inferior aspect of the superior vena cava. N o pneumothorax. 2. Mild vascular congestion. Minimal left pleural fluid. Electronically signed by: Mehreen Herbert DO 12/31/2018 12:33 AM CDT Due to temporary technical issues with the PACS/Fluency reporting system, reports are being signed by the in house radiologist as a courtesy to ensure prompt reporting. The interpreting radiologist is f ully responsible for the content of the report.
[2019-01-02] MEDS: GABAPENTIN 300 MG CAP PO SCH (20:26)
[2019-01-02] MEDS: MELATONIN 3 MG TABLET PO SCH (20:26)
[2019-01-02] MEDS: ATORVASTATIN 40 MG TAB PO SCH (20:27)
--- NOTE | 2019-01-03 04:26 | DS ---
Date of Discharge: 01/02/2019 Procedures: PICC line placement. Admitting Diagnoses: 1.Acute metabolic encephalopathy. 2.Pyelonephritis. 3.Essential hypertension. 4.Chronic kidney disease, stage 3. 5.Dementia, Alzheimer's type, with behavioral disturbance. Discharge Diagnoses: 1.Acute metabolic encephalopathy. The patient is now back to baseline. 2.Acute right-sided pyelonephritis, improving, secondary to ESBL producing E. coli and Proteus. 3.Essential hypertension, stable. 4.Hypernatremia. Sodium level normalized. 5.Alzheimer's dementia with behavioral disturbance, early onset. 6.Chronic kidney disease, stage 3, stable. 7.Severe protein-calorie malnutrition. 8.GERD without esophagitis. 9.Generalized anxiety disorder, on benzodiazepines. 10.Elevated liver enzymes, unclear etiology. Hepatitis panel nonreactive. Hospital Course: The patient is an 83-year-old female, nursing facility, with history of dementia, h ypertension, chronic kidney disease, comes in with lethargy and confusion. The patient apparently hubbard d a UA done at the long-term, found to have multi-drug resistant bacteria and therefore was sent t o the ER for further evaluation. In the ER, her white count was elevated. She did not appear septic . She did have elevated procalcitonin of 36, which trended down. The patient's white blood cell cou nt remained stable around 13. She has not had any fevers. Her repeat urine cultures grew out Proteu s and E. coli. She was started on IV meropenem. Daughter, who is a medical power of [employer], was i nformed and treatment plan was explained to her. All questions were answered. The patient initially pulled out her first PICC line due to her delirium and dementia. Second PICC line was placed and wi th sitter to avoid the patient pulling out her PICC line. Again, her blood cultures remained negativ e to date. The patient overall did well. Her mental status improved and she was back to baseline. She was no longer agitated or aggressive. The patient was then cleared for discharge back to nursing facility with IV antibiotics. The patient will be on meropenem 1 g IV q.8 hours for total of 2 week s. The patient has received 3 days worth of doses care in the hospital. Followup: The patient to follow up with her primary care physician in 2-3 days, return to ER for wor sening condition. The patient to have weekly CBC, CMP, ESR, and CRP, renally dosed IV antibiotics. The patient to have for repeat urine culture once IV antibiotics are completed. Diet: Heart-healthy. Activity: Fall precautions. Physical Examination: General: Awake, alert, oriented x1, no acute distress, elderly female. CV: S1, S2. Respiratory: Moving air well bilaterally. Abdomen: Soft, nontender, nondistended. Positive bowel sounds. Extremities: No clubbing, cyanosis, edema. Neuro: Nonfocal. The patient does have generalized weakness. Total time spent discharging the patient was 36 minutes. /TING Voice ID: [id number] Report ID: [id number]
== END 2019-01-02 22:05 | DRG 689 ==
LOC: ER 11:16 → ERHOLD 21:17 → 4TH 22:15
PROVIDERS: ADMIT Internal Medicine; ATTEND Internal Medicine
PROC: 02HV33Z Insertion of Infusion Device into Superior Vena Cava, Percutaneous Approach (ICD-10-PCS; principal; 2018-12-31)
DX: N10 Acute pyelonephritis (principal); G93.41 Metabolic encephalopathy; E43 Unspecified severe protein-calorie malnutrition; E87.0 Hyperosmolality and hypernatremia; F02.81 Dementia in other diseases classified elsewhere, unspecified severity, with behavioral disturbance; B96.20 Unspecified Escherichia coli [E. coli] as the cause of diseases classified elsewhere; B96.4 Proteus (mirabilis) (morganii) as the cause of diseases classified elsewhere; Z16.12 Extended spectrum beta lactamase (ESBL) resistance; I12.9 Hypertensive chronic kidney disease with stage 1 through stage 4 chronic kidney disease, or unspecified chronic kidney disease; N18.3 Chronic kidney disease, stage 3 (moderate); G30.0 Alzheimer's disease with early onset; Z68.23 Body mass index [BMI] 23.0-23.9, adult; K21.9 Gastro-esophageal reflux disease without esophagitis; F41.1 Generalized anxiety disorder; R79.89 Other specified abnormal findings of blood chemistry; Z88.0 Allergy status to penicillin; Z88.7 Allergy status to serum and vaccine
CPT/HCPCS: 36415; 51702; 71045; 74176; 80048; 80053; 80074; 80076; 81003; 81015; 82553; 83605; 83690; 83735; 84145; 84484; 85025; 85610; 87040; 87077; 87086; 87088; 87186; 93005; 96361; 96365; 96366; 97163; 97165; 99285; J1644; J2185; J7030